=== PATIENT | male | born 1970 | race Caucasian/White ===

== ENCOUNTER 2018-05-30 06:55 | Day surgery (SDC) | payer OTHER ==
[2018-05-29 09:32] VITALS: BMI 46.2
[~2018-05-30 06:55] MED LIST: DEXAMETHASONE SOD PHOSPHATE 10 MG/ML 1 ML VIAL IV ONE; LACTATED RINGERS 1,000 ML IV SCH; MIDAZOLAM (PF) 2 MG/2 ML VIAL IV PRN; ONDANSETRON 4 MG/2 ML VIAL IVP ONE; Pre Op ABX Message 1 EACH MISC MISCELLANE ONE; SCOPOLAMINE 1.5MG/72HR PATCH TRANSDERM ONE; fentaNYL (PF) 50 MCG/ML 2 ML AMP IV PRN
[2018-05-30 07:27] VITALS: RESP 16
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
[2018-05-30 07:43] LABS: Glucose,Whole Blood 124 mg/dL (75-99)
[2018-05-30] MEDS ORDERED: CLINDAMYCIN 900 MG in DEXTROSE 5% IN WATER 50 ML IVPB STA ×2 (07:44)
[2018-05-30 07:45] LABS: HGB 15.6 gm/dL (13.0-17.5); MCH 28.4 pg (25.0-35.0); MCHC 32.5 g/dL (31.0-37.0); MCV 87.5 fL (80.0-100.0); Mean Platelet Volume 9.4; Platelet Count 173 k/uL (150-450); RBC 5.49 m/uL (4.30-5.90); WBC 10.3 k/uL (3.8-10.6)
[2018-05-30 07:50] LABS: Potassium 4.7 mmol/L (3.5-5.1)
[2018-05-30] MEDS ORDERED: PROPOFOL 10 MG/ML 20 ML VIAL IV ONE (07:55)
[2018-05-30] MEDS ORDERED: fentaNYL (PF) 50 MCG/ML 2 ML AMP ONE (07:55)
[2018-05-30] MEDS ORDERED: SUCCINYLCHOLINE CHLORIDE VIAL 200 MG/10 ML VIAL IV ONE (07:55)
[2018-05-30] MEDS ORDERED: LIDOCAINE 1% INJ 10MG/ML (20 ML MDV) ONE (07:55)
[2018-05-30] MEDS ORDERED: MIDAZOLAM 2 MG/2 ML VIAL ONE (07:55)
[2018-05-30] MEDS ORDERED: BUPIVACAIN-EPI 0.25%-1:200,000 30 ML VIAL SQ ONE (08:18)
--- NOTE | 2018-05-30 08:54 | P.OP ---
Date of Procedure: 05/30/18 Description of Procedure: SURGEON: BREANA TORREZ MD EXAMINATION GRADER: NONE. PREOPERATIVE DIAGNOSES: 1. Right lower quadrant abdominal mass. 2. Hypertensive heart disease 3. Diabetes type, 2 insulin dependent 4. Chronic obstructive lung disease 5. Morbid obesity due to excess calories, BMI 46.2 6. History of MRSA POSTOPERATIVE DIAGNOSES: 1. Right lower quadrant abdominal mass, 10 x 4 cm mass subcutaneous 2. Hypertensive heart disease 3. Diabetes type, 2 insulin dependent 4. Chronic obstructive lung disease 5. Morbid obesity due to excess calories, BMI 46.2 6. History of MRSA OPERATION: 1. Excision of right lower quadrant deep subcutaneous abdominal mass 10 x 4 cm extending to the fascia 2. Intermediate closure of the right lower abdominal incision, 12 cm. ANESTHESIA: GETA, local ESTIMATED BLOOD LOSS: 10 mL. SPECIMENS REMOVED: 1. Abdominal wall mass, right lower quadrant COMPLICATIONS: None. Condition: stable Disposition: same day Operative Findings: 1. Abdominal wall mass 10 x 4 cm INDICATIONS: The patient is a 47-year-old male who presents with right lower quadrant pain including increased abdominal wall tenderness and swelling. Surgical options, including excision was discussed. Benefits and risks were described. Informed consent was obtained. DESCRIPTION OF PROCEDURE: Patient was brought into the operating room, laid in supine position. After general, the abdomen was prepped and draped in standard sterile fashion using ChloraPrep. A timeout protocol was confirmed with the surgical team regarding patient's name including procedures to be performed. Preoperative medications was administered. The abdominal mass was measured using a ruler with borders marked with indelible marker. A fistula at the right lower quadrant was found extending into the deep subcutaneous tissue. A soft tissue skin flap was developed after using #15 blade into the deep subcutaneous tissues to the fascia. Using Allis clamps, the abdominal mass was palpated and dissected circumferentially using Bovie cautery. The mass was excised to the level of the fascia. Hemostasis was checked with electro-Bovie cautery. Next the wound was closed in layers using 0-Vicryl for the subcutaneous tissue followed by 3-0 Vicryl for the deep dermis in an interrupted fashion. The skin was cleansed. Exofin tape and glue including Optifoam was applied over the incision. At the end of the procedure, needle, sponge, and instrument count had been verified correct by the assistant professor surgical technology. The patient was taken to the postanesthesia care unit in stable condition. Plan - Discharge Summary Discharge Rx Participant: Yes New Discharge Prescriptions: New HYDROcodone/APAP 5-325MG [[place] 5-325] 1 tab PO Q6HR PRN 3 Days #12 tab PRN Reason: Pain Ibuprofen [Motrin] 600 mg PO Q8HR PRN #30 tab PRN Reason: Pain No Action Insulin Glargine [Lantus] 60 unit SQ BID metFORMIN HCL [Glucophage] 500 mg PO BID Lisinopril [Prinivil] 20 mg PO DAILY Laxative-Colace 1 tab PO Q2D PRN PRN Reason: Constipation Insulin Aspart [NovoLOG Flexpen] See Protocol SQ TID PRN PRN Reason: Blood Sugar - High Albuterol Nebulized [Ventolin Nebulized] 1.25 mg INHALATION DAILY PRN PRN Reason: Respiratory Distress Discharge Medication List Albuterol Nebulized [Ventolin Nebulized] 1.25 mg INHALATION DAILY PRN 05/29/18 [ History] Insulin Aspart [NovoLOG Flexpen] See Protocol SQ TID PRN 05/29/18 [History] Insulin Glargine [Lantus] 60 unit SQ BID 05/29/18 [History] Laxative-Colace 1 tab PO Q2D PRN 05/29/18 [History] Lisinopril [Prinivil] 20 mg PO DAILY 05/29/18 [History] metFORMIN HCL [Glucophage] 500 mg PO BID 05/29/18 [History] HYDROcodone/APAP 5-325MG [[place] 5-325] 1 tab PO Q6HR PRN 3 Days #12 tab [Rx] Ibuprofen [Motrin] 600 mg PO Q8HR PRN #30 tab 05/30/18 [Rx] Follow up Appointment(s)/Referral(s): Breana Torrez MD [STAFF PHYSICIAN] - 06/03/18 Patient Instructions/Handouts: *Surgery [facility] - (Anesthesia) Discharge Instructions Outpatient Surgery, Abdominal Binder (DC) Activity/Diet/Wound Care/Special Instructions: May shower. No bath tub soaks. DO NOT REMOVE dressing. Discharge Disposition: HOME SELF-CARE
[2018-05-30 09:02] VITALS: TEMP 98.2
[2018-05-30 09:14] LABS: Glucose,Whole Blood 128 mg/dL (75-99)
[2018-05-30] MEDS ORDERED: LACTATED RINGERS 1,000 ML IV ONE (09:28)
[2018-05-30 10:09] VITALS: BP 117/70; PULSE 66
[2018-05-30 10:21] LABS: Glucose,Whole Blood 176 mg/dL (75-99)
== END 2018-05-30 10:48 | disposition home or self-care (01) ==
LOC: OR 06:55
PROVIDERS: ATTEND Surgery Plastic and Reconstructive Surgery
DX: L72.8 Other follicular cysts of the skin and subcutaneous tissue (principal); E11.9 Type 2 diabetes mellitus without complications; E66.01 Morbid (severe) obesity due to excess calories; E78.5 Hyperlipidemia, unspecified; F17.200 Nicotine dependence, unspecified, uncomplicated; I11.9 Hypertensive heart disease without heart failure; J44.9 Chronic obstructive pulmonary disease, unspecified; K59.00 Constipation, unspecified; Z68.42 Body mass index [BMI] 45.0-49.9, adult; Z79.4 Long term (current) use of insulin; Z86.14 Personal history of Methicillin resistant Staphylococcus aureus infection; Z88.0 Allergy status to penicillin; Z88.1 Allergy status to other antibiotic agents; Z88.2 Allergy status to sulfonamides; Z79.899 Other long term (current) drug therapy; Z91.013 Allergy to seafood
CPT/HCPCS: 88304; 84132; 84520; 85027; 11406; 12034; J2250; J0330; J1100; J2405; J2001; J3010; J2704; 88305

== ENCOUNTER 2021-09-24 20:51 | Observation (INO) | payer OTHER ==
[2021-09-24] MEDS ORDERED: VANCOMYCIN IV PER PHARMACY 1 EACH MISC MISCELLANE PRN (21:12)
[2021-09-24] MEDS ORDERED: SODIUM CHLORIDE 0.9% 1,000 ML IV STA (21:12)
[2021-09-24] MEDS ORDERED: SODIUM CHLORIDE 0.9% 500 ML 500 ML IV STA (21:12)
[2021-09-24] MEDS ORDERED: RX INFO: IV CONTRAST WAS GIVEN 1 EACH MISC MISCELLANE PRN (21:14)
[2021-09-24] MEDS ORDERED: ACETAMINOPHEN TAB 500 MG TAB PO STA (21:15)
[2021-09-24] MEDS ORDERED: IBUPROFEN 800 MG TAB PO STA (21:15)
[2021-09-24] MEDS ORDERED: ACETAMINOPHEN TAB 325 MG TAB PO PRN (21:15)
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
[2021-09-24] MEDS ORDERED: MORPHINE SULFATE 4 MG/ML SYRINGE IV PRN (21:16)
[2021-09-24] MEDS ORDERED: MORPHINE SULFATE 4 MG/ML SYRINGE IVP STA (21:16)
[2021-09-24] MEDS ORDERED: cefTRIAXone IN SWFI 1,000 MG/10 ML SYRINGE IVP STA (21:18)
[2021-09-24] MEDS ORDERED: VANCOMYCIN 2,250 MG in SODIUM CHLORIDE 0.9% 500 ML 500 ML IVPB STA (21:25)
[2021-09-24 22:01] LABS: Basophils # (A) 0.1 k/uL (0-0.2); Basophils % (A) 0 %; Eosinophils # (A) 0.1 k/uL (0-0.7); Eosinophils % (A) 1 %; HCT 46.9 % (39.0-53.0); HGB 14.5 gm/dL (13.0-17.5); Lymphocytes % (A) 6 %; MCH 27.3 pg (25.0-35.0); Mean Platelet Volume 10.8; Monocytes % (A) 6 %; Neutrophils # (A) 15.2 k/uL (1.3-7.7); Neutrophils % (A) 86 %; Platelet Count 172 k/uL (150-450); RBC 5.33 m/uL (4.30-5.90); RDW 13.7 % (11.5-15.5); WBC 17.7 k/uL (3.8-10.6)
[2021-09-24] MEDS ORDERED: ONDANSETRON 4 MG/2 ML VIAL IVP STA (22:10)
[2021-09-24 22:11] LABS: Albumin 3.6 g/dL (3.5-5.0); Calcium 8.2 mg/dL (8.4-10.2); Magnesium 1.8 mg/dL (1.6-2.3); Phosphorus 2.5 mg/dL (2.5-4.5); Potassium 4.2 mmol/L (3.5-5.1); Total Bilirubin 0.9 mg/dL (0.2-1.3); Total Protein 6.5 g/dL (6.3-8.2)
[2021-09-24 22:20] LABS: INR 0.9 (<1.2); Prothrombin Time 10.3 sec (9.0-12.0)
[2021-09-24] MEDS ORDERED: AMOXIC-POT CLAV 875MG STARTER PACK 2 TAB BTL PO STA (22:53)
--- NOTE | 2021-09-24 22:56 | CT ---
EXAMINATION TYPE: CT pelvis w con DATE OF EXAM: 09/24/2021 COMPARISON: 10/19/2011 HISTORY: abcess CT DLP: 1715 mGycm Automated exposure control for dose reduction was used. CONTRAST: Performed with IV Contrast, patient injected with 100 mL of Isovue 300. Images obtained from the mid kidneys to the proximal femurs with IV contrast. There is some mild stranding around the kidneys. There are bilateral renal calculi. No hydronephrosis . Appendix appears normal. No retroperitoneal adenopathy. Bladder distends smoothly. No inguinal eh ia. No free fluid in the pelvis. No sign of a pelvic mass. There is some subcutaneous edema and fat stranding on the medial left upper thigh. No fracture seen. No evidence of focal bone destruction. The hip joints are intact. There is some acetabular spurring. IMPRESSION: Nonobstructing bilateral renal calculi. No acute abnormality within the abdomen and pelvis. There is some subcutaneous edema medial left upper thigh.
--- NOTE | 2021-09-24 23:11 | CT ---
EXAMINATION TYPE: CT hip LT w con DATE OF EXAM: 09/24/2021 COMPARISON: None HISTORY: abcess CT DLP: 2218.6 mGycm Automated exposure control for dose reduction was used. CONTRAST: Performed with IV Contrast, patient injected with 100 mL of Isovue 300. Images obtained from the level of the mid ileum to the lower femur without IV contrast. There is a large air-filled cavity and fluid level in the medial subcutaneous fat of the left upper t high. This measures 13 cm in greatest dimension. There is extensive fluid and fat stranding in the san bcutaneous fat of the medial left upper thigh and consistent with abscess and cellulitis. The lower e xtent of the subcutaneous edema is not evaluated. This appears to extend well beyond the mid femur. The muscle bundles of the left upper thigh appear intact. No fluid collection in the thigh muscles. T he femur is intact. Hip joint is intact. No focal bone destruction. IMPRESSION: Large cavity with fluid level in the medial left upper thigh consistent with an abscess. Extensive san bcutaneous edema consistent with cellulitis in the medial thigh.
[2021-09-24] MEDS ORDERED: ONDANSETRON 4 MG/2 ML VIAL IVP PRN (23:21)
[2021-09-24] MEDS ORDERED: LORazepam 2 MG/ML INJ IV PRN (23:21)
[2021-09-24] MEDS ORDERED: NALOXONE 0.4 MG/ML 1 ML VIAL IV PRN (23:21)
[2021-09-24 23:50] LABS: Glucose,Whole Blood 142 mg/dL (75-99)
[2021-09-25] MEDS ORDERED: SENNOSIDES-DOCUSATE SODIUM 1 EACH TAB PO PRN (00:12)
[2021-09-25] MEDS: SODIUM CHLORIDE 0.9% 1,000 ML IV SCH ×2 (05:48→09:33)
[2021-09-25 07:35] LABS: Albumin 3.3 g/dL (3.5-5.0); Magnesium 1.8 mg/dL (1.6-2.3); Phosphorus 3.3 mg/dL (2.5-4.5); Potassium 3.7 mmol/L (3.5-5.1); Total Bilirubin 0.8 mg/dL (0.2-1.3); Total Protein 6.1 g/dL (6.3-8.2)
[2021-09-25 07:36] LABS: Glucose,Whole Blood 186 mg/dL (75-99)
[2021-09-25 07:51] LABS: Basophils % (A) 0 %; Eosinophils % (A) 0 %; HCT 43.6 % (39.0-53.0); HGB 14.1 gm/dL (13.0-17.5); Lymphocytes # (A) 0.7 k/uL (1.0-4.8); Lymphocytes % (A) 5 %; MCH 28.5 pg (25.0-35.0); MCHC 32.5 g/dL (31.0-37.0); Mean Platelet Volume 11.2; Monocytes # (A) 1.3 k/uL (0-1.0); Monocytes % (A) 8 %; Neutrophils # (A) 13.8 k/uL (1.3-7.7); Neutrophils % (A) 85 %; Platelet Count 155 k/uL (150-450); RBC 4.96 m/uL (4.30-5.90); RDW 14.3 % (11.5-15.5); WBC 16.3 k/uL (3.8-10.6)
[2021-09-25] MEDS ORDERED: lisinopriL 20 MG TAB PO SCH (09:00)
[2021-09-25] MEDS ORDERED: VANCOMYCIN 2,500 MG in SODIUM CHLORIDE 0.9% 500 ML 500 ML IVPB SCH (11:00)
[2021-09-25] MEDS ORDERED: VANCOMYCIN 2,250 MG in SODIUM CHLORIDE 0.9% 500 ML 500 ML IVPB SCH (11:00)
[2021-09-25 12:02] LABS: Glucose,Whole Blood 161 mg/dL (75-99)
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
[2021-09-25 15:38] VITALS: BP 110/54; PULSE 84; RESP 20; TEMP 98.8
--- NOTE | 2021-09-25 16:12 | P.DS ---
Providers Date of admission: 09/24/21 23:21 Expected date of discharge: 09/25/21 Attending physician: Sami Emery Consults: 09/24/21 23:22 Consult Physician Routine Consulting Provider: Laureano Woo Consult Reason/Comments: abscess Do you want consulting provider notified?: Yes 09/25/21 11:45 Consult Physician Routine Consulting Provider: Rosalva Julain Consult Reason/Comments: lg left thigh abscess with ex. subcut edema Do you want consulting provider notified?: Yes 09/25/21 11:51 Consult Physician Urgent Consulting Provider: Cem Smith Consult Reason/Comments: L leg/buttock abcess Do you want consulting provider notified?: Yes Primary care physician: [facility] Course: Status post debridement at bedside by general surgery , wound cultures obtained and pending .Patient left AMA. Zyvox prescribed as recommended per Dr. Emery. For final diagnoses use H&P. The impression and plan of care has been dictated as directed. : I performed a history and examination of this patient, discussed the same with the dictator. I agree with the dictator's note ,documented as a scribe. Any additional findings or plans will be noted. Plan - Discharge Summary New Discharge Prescriptions: New Sennosides-Docusate Sodium [Senokot-S] 1 each PO Q2D PRN tab PRN Reason: Constipation Linezolid [Zyvox] 600 mg PO Q12H #28 tab Continue lisinopriL [Prinivil] 20 mg PO DAILY Insulin Glargine,Hum.rec.anlog [Lantus Solostar Pen] 60 unit SQ BID Insulin Regular, Human [NovoLIN R] See Protocol SQ AC-TID Albuterol Sulfate [Ventolin HFA] 2 puff INHALATION RT-Q6H PRN PRN Reason: Shortness Of Breath metFORMIN HCL [Glucophage] 1,000 mg PO BID Albuterol Nebulized [Ventolin Nebulized] 2.5 mg INHALATION RT-Q6H PRN PRN Reason: Shortness Of Breath Discontinued Sulfamethox-Tmp 800-160Mg [Bactrim DS 800-160 mg] 1 tab PO Q12HR Discharge Medication List lisinopriL [Prinivil] 20 mg PO DAILY 05/29/18 [History] Albuterol Nebulized [Ventolin Nebulized] 2.5 mg INHALATION RT-Q6H PRN 09/25/21 [ History] Albuterol Sulfate [Ventolin HFA] 2 puff INHALATION RT-Q6H PRN 09/25/21 [History] Insulin Glargine,Hum.rec.anlog [Lantus Solostar Pen] 60 unit SQ BID 09/25/21 [History] Insulin Regular, Human [NovoLIN R] See Protocol SQ AC-TID 09/25/21 [History] Linezolid [Zyvox] 600 mg PO Q12H #28 tab 09/25/21 [Rx] Sennosides-Docusate Sodium [Senokot-S] 1 each PO Q2D PRN tab 09/25/21 [Rx] metFORMIN HCL [Glucophage] 1,000 mg PO BID 09/25/21 [History] Follow up Appointment(s)/Referral(s): Sami Emery Jr, DO [Primary Care Provider] - 3 Days Ambulatory/Diagnostic Orders: Complete Blood Count w/diff [LAB.AMB] Time Frame: 3 Days, Location: None Selected Activity/Diet/Wound Care/Special Instructions: wound care as per Dr. Smith Discharge/Stand Alone Forms: Who Do I Call?, [employer] Discharge Disposition: Left Against Medical Advice
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
[2021-09-25] MEDS ORDERED: INSULIN ASPART (NovoLOG) 100 UNIT/ML VIAL SQ SCH (17:30)
[2021-09-27] MEDS ORDERED: VANCOMYCIN TROUGH DUE 1 EACH MISC MISCELLANE ONE (10:00)
== END 2021-09-25 16:33 | disposition left against medical advice (07) ==
LOC: EC 20:51 → 6NMEDSUR 23:21 → INTOOBSV 23:21 → 6NMEDSUR 23:54 → UNDODISIN 09-25 16:33
PROVIDERS: ADMIT Family Medicine; ATTEND Family Medicine
DX: L02.416 Cutaneous abscess of left lower limb (principal); L03.116 Cellulitis of left lower limb; Z53.29 Procedure and treatment not carried out because of patient's decision for other reasons; N28.9 Disorder of kidney and ureter, unspecified; E66.9 Obesity, unspecified; Z68.42 Body mass index [BMI] 45.0-49.9, adult; L02.31 Cutaneous abscess of buttock; L73.2 Hidradenitis suppurativa; F17.210 Nicotine dependence, cigarettes, uncomplicated; J44.9 Chronic obstructive pulmonary disease, unspecified; E11.9 Type 2 diabetes mellitus without complications; E78.5 Hyperlipidemia, unspecified; I10 Essential (primary) hypertension; E88.09 Other disorders of plasma-protein metabolism, not elsewhere classified; E78.00 Pure hypercholesterolemia, unspecified; E86.0 Dehydration; E87.1 Hypo-osmolality and hyponatremia; N20.0 Calculus of kidney; Z86.14 Personal history of Methicillin resistant Staphylococcus aureus infection; Z71.6 Tobacco abuse counseling; Z79.899 Other long term (current) drug therapy; Z79.4 Long term (current) use of insulin; Z79.84 Long term (current) use of oral hypoglycemic drugs; Z88.2 Allergy status to sulfonamides; Z88.8 Allergy status to other drugs, medicaments and biological substances; Z88.1 Allergy status to other antibiotic agents; Z88.0 Allergy status to penicillin; Z91.013 Allergy to seafood; Z87.828 Personal history of other (healed) physical injury and trauma; Z87.81 Personal history of (healed) traumatic fracture; Z90.89 Acquired absence of other organs; Z98.890 Other specified postprocedural states; Z80.9 Family history of malignant neoplasm, unspecified
CPT/HCPCS: 96366 ×3; 96367; 96376; 96365; 96375; 99284; 36415; 80053 ×2; 83605; 83735 ×2; 84100 ×2; 85025 ×2; 85610; 85730; 87040; 87070; 87205; 87075; 83036; 72193; 73701; G0378 ×2; J3370 ×2; J2405; J0696 ×2; Q9967